=== PATIENT | male | born 1985 | race Caucasian/White ===

== ENCOUNTER 2017-07-28 20:25 | Emergency (ER) | payer OTHER ==
[2017-07-28 20:43] VITALS: BP 161/104; TEMP 98.5; BMI 25.7
[2017-07-28] MEDS ORDERED: KETOROLAC TROMETHAMINE 60 MG/2 ML VIAL IM ONE (20:56)
--- NOTE | 2017-07-28 21:00 | PDOC ---
History of Present Illness - General Chief Complaint: Pain, Acute Stated Complaint: SHOULDER INJURY/[employer] Time Seen by Provider: 07/28/17 20:53 - History of Present Illness Initial Comments: 07/28/17 20:55 CHIEF COMPLAINT: HISTORY OF PRESENT ILLNESS: muscle pulled R lower neck while trying to arrest someone, feels tight when turning neck to side no PMH, no allergies No recent travel or sick contacts. PAST MEDICAL HISTORY: Denies past medical history FAMILY HISTORY: Denies SOCIAL HISTORY: Lives at home with ____. Occupation: . Denies tobacco, alcohol, illicit drug use. SURGICAL HISTORY: Denies ALLERGIES: No known drug allergies REVIEW OF SYSTEMS General/Constitutional: Denies fever or chills. Denies weakness, weight change. HEENT: Denies change in vision. Denies ear pain or discharge. Denies sore throat. Cardiovascular: Denies chest pain or shortness of breath. Respiratory: Denies cough, wheezing, or hemoptysis. Gastrointestinal: Denies nausea, vomiting, diarrhea or constipation. Denies rectal bleeding. Genitourinary: Denies dysuria, frequency, or change in urination. Musculoskeletal: Denies joint or muscle swelling or pain. Denies neck or back pain. Skin and breasts: Denies rash or easy bruising. Neurologic: Denies headache, vertigo, loss of consciousness, or loss of sensation. Psychiatric: Denies depression or anxiety. Endocrine: Denies increased thirst. Denies abnormal weight change. Hematologic/Lymphatic: Denies anemia, easy bleeding, or history of blood clots. Allergic/Immunologic: Denies hives or skin allergy. Denies latex allergy. PHYSICAL EXAM General Appearance: Well-appearing, appropriately dressed. No apparent distress , no intoxication. HEENT: EOMI, PERRLA, normal ENT inspection, normal voice, TMs normal, pharynx normal. No conjunctival pallor. No photophobia, scleral icterus. Neck: Supple. Trachea midline. No tenderness, rigidity, carotid bruit, stridor , lymphadenopathy, or thyromegaly. Respiratory/Chest: Lungs CTAB. No shortness of breath, chest tenderness, respiratory distress, accessory muscle use. No crackles, rales, rhonchi, stridor , wheezing, dullness Cardiovascular: RRR. S1, S2. No JVD, murmur, bradycardia, tachycardia. Vascular Pulses: Dorsalis-Pedis (R): 2+, Dorsalis-Pedis (L): 2+ Gastrointestinal/Abdominal: Normal bowel sounds. Abdomen soft, non-distended. No tenderness or rebound tenderness. No organomegaly, pulsatile mass, guarding , hernia, hepatomegaly, splenomegaly. Lymphatic: No adenopathy, tenderness. Musculoskeletal/Extremities: Normal inspection. FROM of all extremities, normal capillary refill. Pelvis Stable. No CVA tenderness. No tenderness to extremities, pedal edema, swelling, erythema or deformity. Integumentary: Appropriate color, dry, warm. 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 Fully oriented, alert. Appropriate mood/affect. Motor strength 5/5. No appreciable EOM palsy, facial droop or sensory deficit. Past History - Past Medical History Home Medications: Ambulatory Orders Ibuprofen 600 mg PO QID PRN #28 tablet 07/28/17 - Suicide/Smoking/Psychosocial Hx Smoking History: Never smoked Have you smoked in the past 12 months: No Information on smoking cessation initiated: No Hx Alcohol Use: No Drug/Substance Use Hx: No Substance Use Type: None *Physical Exam - Vital Signs Last Vital Signs Temp Pulse Resp BP Pulse Ox 98.5 F 118 H 18 161/104 100 07/28/17 20:33 07/28/17 20:33 07/28/17 20:33 07/28/17 20:33 07/28/17 20:33 *DC/Admit/Observation/Transfer Diagnosis at time of Disposition: Cervical muscle strain Qualifiers: Encounter type: initial encounter Qualified Code(s): S16.1XXA - Strain of muscle, fascia and tendon at neck level, initial encounter - Discharge Dispostion Disposition: HOME Condition at time of disposition: Stable Admit: No - Prescriptions Prescriptions: Ibuprofen 600 mg PO QID PRN #28 tablet PRN Reason: Muscle Spasms - Referrals Referrals: Ajay Mcintosh MD [Staff Physician] - - Patient Instructions Printed Discharge Instructions: DI for Cervical Muscle Strain, DI for Muscle Strain Additional Instructions: Please take medication as prescribed. If your symptoms persist past 5-7 days, please follow up with orthopedics for further evaluation.
[2017-07-28 21:21] VITALS: PULSE 90
== END 2017-07-28 21:21 | disposition home or self-care (01) ==
LOC: SUPCPDRO 20:25 → JERFT 20:25
PROC: 3E0233Z Introduction of Anti-inflammatory into Muscle, Percutaneous Approach (ICD-10-PCS; principal; 2017-07-28)
DX: S16.1XXA Strain of muscle, fascia and tendon at neck level, initial encounter (principal); X50.0XXA Overexertion from strenuous movement or load, initial encounter; Y35.811A Legal intervention involving manhandling, law enforcement official injured, initial encounter; Y93.89 Activity, other specified; Y92.89 Other specified places as the place of occurrence of the external cause; Y99.0 Civilian activity done for income or pay
CPT/HCPCS: 99281-25

== ENCOUNTER 2017-10-15 23:44 | Emergency (ER) | payer OTHER ==
[2017-10-16 00:22] VITALS: BP 141/72; PULSE 98; TEMP 98.1; BMI 24.9
--- NOTE | 2017-10-16 00:34 | PDOC ---
Attending Attestation - Resident Resident Name: Jonathan Zepeda - ED Attending Attestation I have performed the following: I have examined & evaluated the patient, The case was reviewed & discussed with the resident, I agree w/resident's findings & plan, Exceptions are as noted - Physicial Exam PE: 10/16/17 00:33 *Physical Exam General Appearance: Yes: Appropriately Dressed. No: Apparent Distress, Intoxicated HEENT: positive: EOMI, STEPHEN, Normal ENT Inspection, Normal Voice, TMs Normal, Pharynx Normal. negative: Pale Conjunctivae, Photophobia, Scleral Icterus (R), Scleral Icterus (L) Neck: positive: Trachea midline, Normal Thyroid, Supple. negative: Tender, Rigid, Carotid bruit, Stridor, Lymphadenopathy (R), Lymphadenopathy (L), Thyromegaly Respiratory/Chest: positive: Lungs Clear, Normal Breath Sounds. negative: Chest Tender, Respiratory Distress, Accessory Muscle Use, Labored Respiration, RES, Crackles, Rales, Rhonchi, Stridor, Wheezing, Dullness Cardiovascular: positive: Regular Rhythm, Regular Rate, S1, S2. negative: Edema , JVD, Murmur, Bradycardia, Tachycardia Vascular Pulses: Dorsalis-Pedis (R): 2+, Doralis-Pedis (L): 2+ Gastrointestinal/Abdominal: positive: Normal Bowel Sounds, Flat, Soft. negative : Tender, Organomegaly, Pulsatile Mass, Increased Bowel Sounds, Decreased BS, Distended, Guarding, Rebound, Hernia, Hepatomegaly, Spleenomegaly Lymphatic: negative: Adenopathy, Tenderness Musculoskeletal: positive: Normal Inspection. negative: CVA Tenderness, Decreased Range of Motion Extremity: positive: Normal Capillary Refill, Normal Inspection, Normal Range of Motion, Pelvis Stable. negative: Tender, Pedal Edema, Swelling, Erythema Integumentary: positive: Normal Color, Dry, Warm. 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 negative: EOM Palsy, Facial Droop, Sensory Deficit - Medical Decision Making 10/16/17 00:34 Pt treated and released. <Pepito Ramos - Last Filed: 10/16/17 00:33> - HPI HPI: 10/16/17 00:36 The patient is a 32 year old male with no significant past medical history who presents with right knee pain for just prior to arrival. 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 He states that his pain is a 2/10. He presents with his partner who presents with similar symptoms. <Albert Palmer - Last Filed: 10/16/17 00:37>
--- NOTE | 2017-10-16 01:02 | PDOC ---
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 2/10 pain to right knee not exacerbated by ambulation. Past History - Past Medical History Allergies/Adverse Reactions: Allergies Allergy/AdvReac Type Severity Reaction Status Date / Time No Known Allergies Allergy Verified 10/16/17 01:40 Home Medications: Ambulatory Orders NK [No Known Home Medication] 10/16/17 - Suicide/Smoking/Psychosocial Hx Smoking History: Never smoked Have you smoked in the past 12 months: No Information on smoking cessation initiated: No Hx Alcohol Use: No Drug/Substance Use Hx: No Substance Use Type: None Review of Systems - Review of Systems Able to Perform ROS?: Yes Constitutional: No: Symptoms Reported HEENTM: No: Symptoms Reported Respiratory: No: Symptoms reported Cardiac (ROS): No: Symptoms Reported ABD/GI: No: Symptoms Reported : No: Symptoms Reported Musculoskeletal: No: Symptoms Reported Integumentary: No: Symptoms Reported Neurological: No: Symptoms reported All Other Systems: Reviewed and Negative *Physical Exam - Vital Signs Last Vital Signs Temp Pulse Resp BP Pulse Ox 98.1 F 98 H 18 141/72 99 10/16/17 00:18 10/16/17 00:18 10/16/17 00:18 10/16/17 00:18 10/16/17 00:18 - Physical Exam General Appearance: Yes: Nourished, Appropriately Dressed. No: Apparent Distress HEENT: positive: EOMI, STEPHEN, Normal ENT Inspection Neck: negative: Tender Respiratory/Chest: positive: Lungs Clear, Normal Breath Sounds. negative: Chest Tender Cardiovascular: positive: Regular Rhythm, Regular Rate, S1, S2 Gastrointestinal/Abdominal: positive: Normal Bowel Sounds, Flat. negative: Tender Musculoskeletal: positive: Normal Inspection. 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 Patient given motrin for relief. D/c *DC/Admit/Observation/Transfer Diagnosis at time of Disposition: Knee abrasion - Discharge Dispostion Disposition: HOME Condition at time of disposition: Fair Admit: No - Referrals Referrals: STAFF,NOT ON [Primary Care Provider] - - Patient Instructions Printed Discharge Instructions: DI for Knee Pain Additional Instructions: Please come back to Emergency Department for any new, worsening or concerning symptoms. - Post Discharge Activity
== END 2017-10-16 01:35 | disposition home or self-care (01) ==
LOC: JER 23:44
DX: S89.81XA Other specified injuries of right lower leg, initial encounter (principal); W19.XXXA Unspecified fall, initial encounter; Y35.891A Legal intervention involving other specified means, law enforcement official injured, initial encounter; Y93.02 Activity, running; Y92.89 Other specified places as the place of occurrence of the external cause; Y99.0 Civilian activity done for income or pay
CPT/HCPCS: 99281-25

== ENCOUNTER 2019-01-04 17:51 | Emergency (ER) | payer OTHER ==
--- NOTE | 2019-01-04 18:00 | PDOC ---
Rapid Medical Evaluation Time Seen by Provider: 01/04/19 17:58 Medical Evaluation: Allergies Allergy/AdvReac Type Severity Reaction Status Date / Time No Known Allergies Allergy Verified 10/16/17 01:40 01/04/19 17:59 I have performed a brief in-person evaluation of this patient. The patient presents with a chief complaint of: L wrist pain s/p FOOSH Pertinent physical exam findings: No bony tenderness to left elbow, forearm, wrist or hand. Radial pulse 2+. NVI I have ordered the following: xrays The patient will proceed to the ED for further evaluation. 01/04/19 18:00 Discharge Disposition - Diagnosis Wrist pain, left - Referrals Referrals: Clarence Jordan MD [Primary Care Provider] - - Patient Instructions - Post Discharge Activity
[2019-01-04 18:11] VITALS: BP 174/99; PULSE 129; TEMP 98.9; BMI 25.0
[2019-01-04] MEDS ORDERED: IBUPROFEN 400 MG TABLET (FP) PO ONE (18:41)
--- NOTE | 2019-01-04 18:42 | PDOC ---
History of Present Illness - History of Present Illness Initial Comments: 01/04/19 18:53 Patient is a 33 year old male with no significant past medical history, who presents to the ED with complaints of right wrist pain that began just prior to ED arrival. 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 He reports being advised by his superiors to come into the ED for further evaluation.n Denies chest pain, sob. Denies nausea, vomiting. Denies head pain, loss of consciousness, Denies contact with sick individuals, out of state travelling. Denies any other symptoms. Allergies: None Social history: No smoking, No alcohol. No illicit drugs. Surgical history: None PMD: Dr. Jordan <Corey Frye - Last Filed: 01/04/19 19:42> - General History Source: Patient Exam Limitations: No Limitations <Chayo Wynn - Last Filed: 01/06/19 15:04> - General Chief Complaint: Injury Stated Complaint: INJURY-[employer] Time Seen by Provider: 01/04/19 17:58 Past History <Corey Frye - Last Filed: 01/04/19 19:42> - Past Medical History COPD: No HTN: Yes - Suicide/Smoking/Psychosocial Hx Smoking History: Never smoked Have you smoked in the past 12 months: No Hx Alcohol Use: No Drug/Substance Use Hx: No Substance Use Type: None <Chayo Wynn - Last Filed: 01/06/19 15:04> - Past Medical History Allergies/Adverse Reactions: Allergies Allergy/AdvReac Type Severity Reaction Status Date / Time No Known Allergies Allergy Verified 01/04/19 18:06 Home Medications: Ambulatory Orders Losartan Potassium [Cozaar -] 25 mg PO DAILY 01/04/19 Review of Systems - Review of Systems Able to Perform ROS?: Yes Comments:: 01/04/19 18:53 GENERAL/CONSTITUTIONAL: No fever or chills. No weakness. HEAD, EYES, EARS, NOSE AND THROAT: No change in vision. No ear pain or discharge. No sore throat. GASTROINTESTINAL: No nausea, vomiting, diarrhea or constipation. GENITOURINARY: No dysuria, frequency, or change in urination. CARDIOVASCULAR: No chest pain or shortness of breath. RESPIRATORY: No cough, wheezing, or hemoptysis. MUSCULOSKELETAL: +Left wrist pain. No neck or back pain. SKIN: No rash NEUROLOGIC: No headache, vertigo, loss of consciousness, or change in strength/ sensation. ENDOCRINE: No increased thirst. No abnormal weight change. HEMATOLOGIC/LYMPHATIC: No anemia, easy bleeding, or history of blood clots. ALLERGIC/IMMUNOLOGIC: No hives or skin allergy. <Corey Frye - Last Filed: 01/04/19 19:42> *Physical Exam - Vital Signs Last Vital Signs Temp Pulse Resp BP Pulse Ox 98.9 F 129 H 16 174/99 H 99 01/04/19 18:06 01/04/19 18:06 01/04/19 18:06 01/04/19 18:06 01/04/19 18:06 - Physical Exam Comments: 01/04/19 18:54 GENERAL: Awake, alert, and fully oriented, in no acute distress HEAD: No signs of trauma EYES: PERRLA, EOMI, sclera anicteric, conjunctiva clear ENT: Auricles normal inspection, hearing grossly normal, nares patent, oropharynx clear without exudates. Moist mucosa NECK: Normal ROM, supple, no lymphadenopathy, JVD, or masses LUNGS: Breath sounds equal, clear to auscultation bilaterally. No wheezes, and no crackles HEART: Regular rate and rhythm, normal S1 and S2, no murmurs, rubs or gallops ABDOMEN: Soft, nontender, normoactive bowel sounds. No guarding, no rebound. No masses EXTREMITIES: +No pain over scaphoid. Normal range of motion, no edema. No clubbing or cyanosis. No cords, erythema, or tenderness NEUROLOGICAL: Cranial nerves II through XII grossly intact. Normal speech, normal gait SKIN: Warm, Dry, normal turgor, no rashes or lesions noted. <Corey Frye - Last Filed: 01/04/19 19:42> - Vital Signs Last Vital Signs Temp Pulse Resp BP Pulse Ox 98.9 F 129 H 16 174/99 H 99 01/04/19 18:06 01/04/19 18:06 01/04/19 18:06 01/04/19 18:06 01/04/19 18:06 <Chayo Wynn - Last Filed: 01/06/19 15:04> Moderate Sedation - Procedure Monitoring Vital Signs: Procedure Monitoring Vital Signs Temperature 98.9 F 01/04/19 18:06 Pulse Rate 129 H 01/04/19 18:06 Respiratory Rate 16 01/04/19 18:06 Blood Pressure 174/99 H 01/04/19 18:06 O2 Sat by Pulse Oximetry (%) 99 01/04/19 18:06 <Corey Frye - Last Filed: 01/04/19 19:42> - Procedure Monitoring Vital Signs: Procedure Monitoring Vital Signs Temperature 98.9 F 01/04/19 18:06 Pulse Rate 129 H 01/04/19 18:06 Respiratory Rate 16 01/04/19 18:06 Blood Pressure 174/99 H 01/04/19 18:06 O2 Sat by Pulse Oximetry (%) 99 01/04/19 18:06 <hCayo Wynn - Last Filed: 01/06/19 15:04> Medical Decision Making - Medical Decision Making 01/04/19 20:51 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 Patient states that he injured it while tackling a suspect. On exam tenderness to the left ulnar wrist. [facility] ordered from [facility] is negative for fractures. Most likely wrist pain. John wrap applied. Discharge home. Ortho follow-up given. Pt revitalized; HR now 99 I discussed the physical exam findings, ancillary test results and final diagnoses with the patient. I answered all of the patient's questions. The patient was satisfied with the care received and felt comfortable with the discharge plan and treatment plan. The Patient agrees to follow up with the primary care physician/specialist within 24-72 hours. Return precautions were given. <Chayo Wynn - Last Filed: 01/06/19 15:04> *DC/Admit/Observation/Transfer <Corey Frye - Last Filed: 01/04/19 19:42> - Discharge Dispostion Decision to Admit order: No <Chayo Wynn - Last Filed: 01/06/19 15:04> Diagnosis at time of Disposition: Wrist pain, left - Discharge Dispostion Disposition: HOME Condition at time of disposition: Stable - Referrals Referrals: Clarence Jordan MD [Primary Care Provider] - - Patient Instructions Printed Discharge Instructions: DI for Wrist Pain Additional Instructions: You sprained your wrist. Your x-ray was negative for broken bones. You may take Motrin 800 mg every 8 hours to help reduce pain and swelling. Please ice the area for 20 minute intervals at least 5 times a day to help reduce swelling. Please follow-up with orthopedics in 1 week if your symptoms are not improving. Return to the emergency department if you have worsening pain, or unable to walk , numbness and tingling of the foot, or had any changes in her symptoms. - Post Discharge Activity Forms/Work/School Notes: Back to Work
== END 2019-01-04 19:21 | disposition home or self-care (01) ==
LOC: JERFT 17:51
DX: S69.82XA Other specified injuries of left wrist, hand and finger(s), initial encounter (principal); W18.39XA Other fall on same level, initial encounter; Y35.891A Legal intervention involving other specified means, law enforcement official injured, initial encounter; Y93.89 Activity, other specified; Y92.89 Other specified places as the place of occurrence of the external cause; Y99.8 Other external cause status
CPT/HCPCS: 73110-TC-LT-FY; 73130-TC-LT-FY; 99281-25